=== PATIENT | male | born 1975 | race American Indian/Alaskan Native ===

== ENCOUNTER 2022-02-14 14:40 | Emergency (ER) | payer OTHER, BC ==
[2022-02-14 14:51] VITALS: TEMP 98.5; BMI 25.9
[2022-02-14] MEDS ORDERED: ACETAMINOPHEN 325 MG TABLET (FP) PO ONE (16:19)
[2022-02-14] MEDS ORDERED: ACETAMINOPHEN 325 MG TABLET (FP) ONE (16:22)
[2022-02-14 17:02] LABS: BASO % 0.6 % (0-2.0); EOS % 2.4 % (0-4.5); HEMATOCRIT 34.2 % (35.4-49); HEMOGLOBIN 11.2 GM/dL (11.7-16.9); LYMPH % 13.8 % (8-40); MCH 29.9 pg (25.7-33.7); MCHC 32.8 g/dl (32.0-35.9); MEAN CELL VOLUME 90.9 fl (80-96); MEAN PLT VOLUME 7.1 fl (7.5-11.1); MONO % 6.5 % (3.8-10.2); NEUT % 76.7 % (42.8-82.8); PLATELET COUNT 316 10^3/uL (134-434); RBC 3.76 M/mm3 (4.00-5.60); RDW 16.6 % (11.9-15.9)
[2022-02-14 17:21] LABS: CHLORIDE 97 mmol/L (98-107); SODIUM 137 mmol/L (136-145)
[2022-02-14 17:23] LABS: ALBUMIN 3.2 g/dl (3.4-5.0); ANION GAP 13 MMOL/L (8-16); CALCIUM 9.4 mg/dL (8.5-10.1); CO2 26 mmol/L (21-32); GLUCOSE,RANDOM 145 mg/dL (74-106)
[2022-02-14 17:24] LABS: BLOOD UREA NITROGEN 67.9 mg/dL (7-18)
[2022-02-14 17:26] LABS: SGPT/ALT 22 U/L (13-61)
[2022-02-14 17:27] LABS: SGOT/AST 14 U/L (15-37)
[2022-02-14 17:28] LABS: BILIRUBIN,TOTAL 0.4 mg/dL (0.2-1); TOT PROT 6.9 g/dl (6.4-8.2)
[2022-02-14 17:29] LABS: ALK PHOS 69 U/L (45-117)
[2022-02-14 18:26] VITALS: BP 175/109; PULSE 81; RESP 16
== END 2022-02-14 18:27 | disposition home or self-care (01) ==
LOC: JER 14:40
DX: M71.50 Other bursitis, not elsewhere classified, unspecified site (principal)
CPT/HCPCS: 36415; 73070-TC-RT-FY; 80053; 85025; 93971; 99284-25